=== PATIENT | female | born 2000 | race Caucasian/White ===

== ENCOUNTER 2022-03-02 17:12 | Emergency (ER) | payer OTHER, SELFPAY ==
[2022-03-02 17:16] VITALS: BP 127/66; PULSE 138; RESP 18; TEMP 37.2; O2SAT 97; BMI 23.5
--- NOTE | 2022-03-02 17:22 | CRLHL7_ITS ---
For Patients: As a result of the Cures Act, medical imaging exams and procedure reports are released immediately into your electronic medical record. You may view this report before your referring provider. If you have questions, please contact your health care provider. Indication: Fall, knee pain. Technique: Right knee 3 views. Comparison: None. Findings: Bones: No acute fracture or aggressive osseous lesion. Alignment is normal. Joint spaces: The joint spaces are preserved. No joint effusion. Soft tissues: Unremarkable. Impression: No evidence of an acute bony abnormality. Dictated by Papa Ching MD @ 03/02/2022 6:16:25 PM (Electronically Signed)
--- NOTE | 2022-03-02 17:32 | ED_ITS ---
HPI - General Adult General Chief complaint: Extremity Pain/Injury, Lower Stated complaint: knee injury Time Seen by Provider: 03/02/22 17:22 Source: patient Mode of arrival: ambulatory Limitations: no limitations History of Present Illness HPI narrative: 21-year-old female coming in today with knee pain after falling down the steps. She landed on her right knee on the edge of the step. States that hurts to bend or extend the knee fully which she can walk on it. This occurred approximately 4-1/2 hours ago. She denies any other injury. Related Data Home Medications Medication Instructions Recorded Confirmed norgestimate 0.25 mg-ethinyl tab 03/02/22 estradiol 35 mcg tablet (Estarylla) Allergies Allergy/AdvReac Type Severity Reaction Status Date / Time hydrocodone Allergy Verified 03/02/22 17:19 Review of Systems Status of ROS: Reports: 6 or more systems reviewed and unremarkable except as noted in History and below PFSH PFS Social History Smoking Status: Never smoker How often do you have a drink containing alcohol: never How often do you have six or more drinks on one occasion: Never AUDIT-C Alcohol total score: 0 Non-prescribed substance use: denies use Exam Narrative: Exam Narrative: Well-nourished well-developed patient in no acute distress but is rather anxious. Alert and oriented. Answers questions appropriately. HEENT: Normocephalic atraumatic. Pupils are equally round reactive to light. Extraocular muscles are intact. Conjunctivae are moist without any icterus noted. Extremities: Bilateral lower extremities are without edema. Normal DP and PT pulses. Patient has small area of ecchymosis anteriorly of the right knee. She has tenderness to palpation of the kneecap. She has normal range of motion with extension however this causes her significant amount of pain. She has a hard time with flexion secondary to pain. I do not appreciate a significant joint effusion. Skin: Well perfused without any obvious rashes. Const: Vital Signs, click to edit/add: Vital Signs - 24 hr 03/02/22 17:16 03/02/22 18:01 Temperature 98.9 F Pulse Rate [Right Pulse Oximeter] 138 H 115 H Respiratory Rate 18 Blood Pressure [Ri ght Upper Arm] 127/66 109/74 Pulse Oximetry 97 97 Oxygen Delivery Me thod Room Air Room Air Course Course Hospital Course: X-ray was done of the knee, read by me, does not show any acute pathology. Vital Signs Vital signs: Initial Vital Signs Temperature 98.9 F 03/02/22 17:16 Temperature Source Temporal Artery Scan 03/02/22 17:16 Pulse Rate 138 H 03/02/22 17:16 Respiratory Rate 18 03/02/22 17:16 Blood Pressure 127/66 03/02/22 17:16 Blood Pressure Mean 86 03/02/22 17:16 Pulse Oximetry 97 03/02/22 17:16 Oxygen Delivery Method 03/02/22 17:16 Vital Signs Temperature 98.9 F 03/02/22 17:16 Pulse Rate 138 H 03/02/22 17:16 Respiratory Rate 18 03/02/22 17:16 Blood Pressure 127/66 03/02/22 17:16 Pulse Oximetry 97 03/02/22 17:16 Oxygen Delivery Method 03/02/22 17:16 Temperature 98.9 F 03/02/22 17:16 Pulse Rate 115 H 03/02/22 18:01 Respiratory Rate 18 03/02/22 17:16 Blood Pressure 109/74 03/02/22 18:01 Pulse Oximetry 97 03/02/22 18:01 Oxygen Delivery Method 03/02/22 18:01 Medical Decision Making MDM Narrative Medical decision making narrative: 21-year-old female, contusion to the right knee. Discussed symptomatic treatment. Imaging Data Knee x-ray: Attestation: I have reviewed the pertinent imaging results. Radiologist's impression: Right knee 3 views. Comparison: None. Findings: Bones: No acute fracture or aggressive osseous lesion. Alignment is normal. Joint spaces: The joint spaces are preserved. No joint effusion. Soft tissues: Unremarkable. Impression: No evidence of an acute bony abnormality. Discharge Plan Discharge Clinical Impression: Contusion of knee Patient Disposition: Home, Self-Care Condition: Stable Additional Instructions: Okay to ice the knee as needed for 20 minutes at a time up to 3 times per day. Do not apply ice directly to skin. Okay to take ibuprofen or Tylenol as needed/as directed for discomfort. Okay to continue to snugly wrap the knee with an Anish wrap for extra support. Activity as tolerated. Prescriptions: No Action norgestimate-ethinyl estradiol [Estarylla] 0.25-35 mg-mcg tablet Label Comments: TAKE 1 TABLET BY MOUTH EVERY DAY. TAKE CONTINUOUSLY. SKIPPING PLACEBO PILLS Follow Up/Referrals: Provider,Not a Local [Primary Care Provider] - Stand Alone Forms: [employer] Info Instructions
[2022-03-02 18:01] VITALS: BP 109/74; PULSE 115; O2SAT 97
== END 2022-03-02 18:53 | disposition home or self-care (01) ==
PROVIDERS: Emergency Provider Family Medicine
DX: S80.01XA Contusion of right knee, initial encounter (principal); Z88.5 Allergy status to narcotic agent; W10.9XXA Fall (on) (from) unspecified stairs and steps, initial encounter
CPT/HCPCS: 73562; 99283; 99284